=== PATIENT | female | born 1950 | race Caucasian/White ===

== ENCOUNTER 2016-11-16 18:42 | Inpatient (IN) | payer OTHER ==
[~2016-11-16] VITALS: Ht 152.4 cm; Wt 69.2 kg
[2016-11-16 19:05] LABS: EOSINOPHIL (%) 1.5 % (0-5); EOSINOPHIL COUNT 0.1 K/uL (0-0.3); HEMATOCRIT 41.5 % (36.0-46.0); IMMATURE GRANULOCYTE (%) 0.6 % (0.0-0.7); IMMATURE GRANULOCYTE COUNT 0.1 K/uL; INSTRUMENT ABS NEUTROPHIL CT 5.3 K/uL; LYMPHOCYTE COUNT 2.1 K/uL (1.0-2.8); MCH 29.8 PG (29.0-34.0); MCHC 33.3 G/DL (30.0-36.0); MCV 89.6 FL (83-99); MEAN PLAT.VOLUME 10.3 uM^3 (9.5-12.4); MONOCYTE (%) 6.2 % (3-12); MONOCYTE COUNT 0.5 K/uL (0-0.8); NEUTROPHIL (%) 65.4 % (45-76); NEUTROPHIL COUNT 5.3 K/uL (1.8-6.4); PLATELET COUNT 198 K/uL (156-360); RBC DIS.WIDTH-CV 12.8 % (11.8-14.6); RBC DIS.WIDTH-SD 42.2 % (39-53); RED BLOOD COUNT 4.63 M/uL (3.80-5.20); WHITE BLOOD COUNT 8.2 K/uL (4.1-10.2)
[2016-11-16 19:15] LABS: AMYLASE 48 IU/L (1-118); CHLORIDE 109 mEq/L (99-109); POTASSIUM 3.8 mEq/L (3.7-5.4); SODIUM 139 mEq/L (136-147)
[2016-11-16 19:17] LABS: GLUCOSE 128 mg/dL (70-99)
[2016-11-16 19:18] LABS: ANION GAP 10 MEQ/L (2-14)
[2016-11-16 19:20] LABS: SERUM ETHYL ALCOHOL < 10 mg/dL
[2016-11-16 19:21] LABS: GFR ESTIMATE (CALCULATED) > 59 mL/min/; UREA NITROGEN (BUN) 11 mg/dL (9-23)
[2016-11-16 19:24] LABS: LIPASE 56 U/L (1.0-51.0)
[2016-11-16 19:36] LABS: INTER. NORMALIZED RATIO 2.4; PROTHROMBIN TIME 24.6 (9.2-11.2)
[2016-11-16 19:51] LABS: ADD MIUA? YES; BILIRUBIN NEGATIVE; BLOOD NEGATIVE; COLOR STRAW ((YELLOW)); GLUCOSE (STRIP) NEGATIVE; KETONES NEGATIVE; LEUKOCYTES LARGE; NITRITE NEGATIVE; PROTEIN (STRIP) NEGATIVE; SPECIFIC GRAVITY 1.017 (1.000-1.030); UROBILINOGEN 0.2 MG/DL (0.2-1.0)
[2016-11-16 20:00] LABS: BACTERIA NONE SEEN /HPF; EPITHELIAL CELLS 1+ /HPF; MUCUS TRACE /LPF; RED BLOOD CELLS 0-5 /HPF (0-5); UCUL ADDED? NO; WHITE BLOOD CELLS 15-20 /HPF (0-5)
[2016-11-16 20:01] LABS: ADD MEDTOX COMMENT Y; AMPHETAMINE NEGATIVE (500 ng/mL); BARBITURATES NEGATIVE (200 ng/mL); BENZODIAZEPINES PRESUMPTIVE POSITIVE (150 ng/mL); COCAINE NEGATIVE (150 ng/mL); INTERNAL CONTROLS VALID? YES; METHADONE NEGATIVE (200 ng/mL); METHAMPHETAMINE NEGATIVE (500 ng/mL); OPIATES (MORPHINE) NEGATIVE (100 ng/mL); OXYCODONE PRESUMPTIVE POSITIVE (100 ng/mL); PHENCYCLIDINE NEGATIVE (25 ng/mL); PROPOXYPHENE NEGATIVE (300 ng/mL); THC CANNABINOIDS NEGATIVE (50 ng/mL); TRICYCLIC ANTIDEPRESSANTS NEGATIVE (300 ng/mL)
[2016-11-16 20:37] LABS: BENZODIAZEPINES, URINE SCREEN POSITIVE (200 ng/mL)
[2016-11-17 03:58] VITALS: BP 125/62
[2016-11-17 08:09] VITALS: BP 129/72
[2016-11-17 13:05] LABS: INTER. NORMALIZED RATIO 2.7; PROTHROMBIN TIME 28.3 (9.2-11.2)
[2016-11-17 16:08] VITALS: BP 140/91
[2016-11-17 18:58] VITALS: BP 137/70
[2016-11-18 07:24] LABS: INTER. NORMALIZED RATIO 2.1; PROTHROMBIN TIME 21.5 (9.2-11.2)
[2016-11-18 07:37] VITALS: BP 145/97
[2016-11-18 15:22] VITALS: BP 118/84
[2016-11-18 15:40] LABS: C DIFF TOXIN NEGATIVE (NEGATIVE)
[2016-11-18 15:41] LABS: PROBE CHECK PASS; SPECIMEN PROCESSING CONTROL PASS
[2016-11-19 07:18] LABS: INTER. NORMALIZED RATIO 1.5; PROTHROMBIN TIME 15.5 (9.2-11.2)
[2016-11-19 07:49] VITALS: BP 114/66
[2016-11-19 15:49] VITALS: BP 133/63
[2016-11-20 07:39] VITALS: BP 136/71
[2016-11-20 11:54] LABS: INTER. NORMALIZED RATIO 1.3; PROTHROMBIN TIME 13.8 (9.2-11.2)
[2016-11-20 15:00] VITALS: BP 140/61
[2016-11-21 07:26] VITALS: BP 129/61
[2016-11-21 07:55] LABS: INTER. NORMALIZED RATIO 1.4; PROTHROMBIN TIME 14.2 (9.2-11.2)
[2016-11-21 15:32] VITALS: BP 152/79
[2016-11-22 07:36] VITALS: BP 124/80
[2016-11-22 13:26] LABS: INTER. NORMALIZED RATIO 1.4
[2016-11-22 15:44] VITALS: BP 132/71
[2016-11-23 07:29] VITALS: BP 185/89
[2016-11-23 11:45] LABS: INTER. NORMALIZED RATIO 1.4; PROTHROMBIN TIME 13.9 (9.2-11.2)
[2016-11-23 13:00] VITALS: BP 134/68
[2016-11-23 15:30] VITALS: BP 130/73
[2016-11-23 22:46] VITALS: BP 132/74
[2016-11-24 01:09] VITALS: BP 142/73
[2016-11-24 07:40] VITALS: BP 152/82
[2016-11-24 12:06] LABS: INTER. NORMALIZED RATIO 1.1; PROTHROMBIN TIME 11.4 (9.2-11.2)
[2016-11-24 15:16] VITALS: BP 156/87
[2016-11-25 07:31] VITALS: BP 154/82
[2016-11-25 11:36] VITALS: BP 168/88
[2016-11-25 15:39] VITALS: BP 153/86
[2016-11-25 20:33] LABS: INTER. NORMALIZED RATIO 1.1; PROTHROMBIN TIME 10.7 (9.2-11.2)
[2016-11-26 07:35] VITALS: BP 174/74
[2016-11-26 10:01] LABS: INTER. NORMALIZED RATIO 1.1; PROTHROMBIN TIME 10.7 (9.2-11.2)
[2016-11-26 15:19] VITALS: BP 139/79
[2016-11-27 07:29] VITALS: BP 167/84
[2016-11-27 15:05] LABS: INTER. NORMALIZED RATIO 1.1; PROTHROMBIN TIME 11.4 (9.2-11.2)
[2016-11-27 16:19] VITALS: BP 167/80
[2016-11-28 07:47] VITALS: BP 150/93
[2016-11-28 13:21] LABS: INTER. NORMALIZED RATIO 1.1; PROTHROMBIN TIME 11.4 (9.2-11.2)
[2016-11-28 15:29] VITALS: BP 127/67
[2016-11-29 08:01] VITALS: BP 149/76
[2016-11-29 15:18] VITALS: BP 143/68
[2016-11-30 07:45] VITALS: BP 141/72
[2016-11-30 08:16] LABS: INTER. NORMALIZED RATIO 1.1; PROTHROMBIN TIME 10.9 (9.2-11.2)
[2016-11-30 15:31] VITALS: BP 138/88
[2016-12-01 07:49] VITALS: BP 170/84
[2016-12-02 07:25] VITALS: BP 147/87
[2016-12-02 15:38] VITALS: BP 173/76
[2016-12-02 19:36] VITALS: BP 140/75
[2016-12-03 07:52] VITALS: BP 133/94
[2016-12-03 15:30] VITALS: BP 153/91
[2016-12-03 18:06] LABS: PROTHROMBIN TIME 10.2 (9.2-11.2)
[2016-12-04 07:46] VITALS: BP 156/81
[2016-12-04 15:19] VITALS: BP 169/97
[2016-12-04 16:47] VITALS: BP 134/81
[2016-12-04 19:35] VITALS: BP 139/82
[2016-12-05 11:04] VITALS: BP 150/69
[2016-12-05 15:28] VITALS: BP 106/56
[2016-12-05 15:34] LABS: INTER. NORMALIZED RATIO 1.3; PROTHROMBIN TIME 12.9 (9.2-11.2)
[2016-12-05 20:01] VITALS: BP 138/90
[2016-12-06 07:57] VITALS: BP 115/67
[2016-12-06 16:32] VITALS: BP 113/64
[2016-12-07 11:48] VITALS: BP 150/75
[2016-12-07 11:58] LABS: INTER. NORMALIZED RATIO 1.2; PROTHROMBIN TIME 11.9 (9.2-11.2)
[2016-12-07 16:00] VITALS: BP 128/66
[2016-12-08 07:47] VITALS: BP 117/70
[2016-12-08 15:23] VITALS: BP 116/69
[2016-12-09 11:06] VITALS: BP 125/72
[2016-12-09 15:23] VITALS: BP 136/87
[2016-12-09 21:04] LABS: INTER. NORMALIZED RATIO 1.4; PROTHROMBIN TIME 14.3 (9.2-11.2)
[2016-12-10 07:35] VITALS: BP 129/85
[2016-12-10 15:37] VITALS: BP 95/60
[2016-12-10 23:06] LABS: POINT-OF-CARE METER ID UU13113830; POINT-OF-CARE USER ID BHSMEW
[2016-12-10 23:06] LABS: HEMATOCRIT 40.7 % (36.0-46.0); MCH 29.8 PG (29.0-34.0); MCHC 32.9 G/DL (30.0-36.0); MCV 90.6 FL (83-99); MEAN PLAT.VOLUME 11.1 uM^3 (9.5-12.4); PLATELET COUNT 228 K/uL (156-360); RBC DIS.WIDTH-CV 12.8 % (11.8-14.6); RBC DIS.WIDTH-SD 41.8 % (39-53); RED BLOOD COUNT 4.49 M/uL (3.80-5.20); WHITE BLOOD COUNT 7.7 K/uL (4.1-10.2)
[2016-12-10 23:17] LABS: CHLORIDE 105 mEq/L (99-109); POTASSIUM 3.8 mEq/L (3.7-5.4); SODIUM 143 mEq/L (136-147)
[2016-12-10 23:19] LABS: GLUCOSE 97 mg/dL (70-99)
[2016-12-10 23:21] LABS: ANION GAP 13 MEQ/L (2-14); TOTAL BILIRUBIN 0.2 mg/dL (0.0-1.0)
[2016-12-10 23:23] LABS: ALKALINE PHOSPHATASE 64 IU/L (3-129); GFR ESTIMATE (CALCULATED) > 59 mL/min/
[2016-12-10 23:24] LABS: UREA NITROGEN (BUN) 17 mg/dL (9-23)
[2016-12-10 23:28] LABS: TROP-I INTERPRETATION NEGATIVE; TROPONIN-I < 0.01 ng/mL (0.0-0.30)
[2016-12-11 00:19] LABS: LIPASE 135 U/L (1.0-51.0)
[2016-12-11] MEDS ORDERED: APRESOLINE25 MG PO (12:02)
[2016-12-11] MEDS ORDERED: MONTELUKAST SOD10 MG PO (12:03)
[2016-12-11] MEDS ORDERED: WARFARIN SODIUM5 MG PO (12:04)
[2016-12-11] MEDS ORDERED: DESYREL100 MG PO (12:06)
[2016-12-11] MEDS ORDERED: OXYCODONE-APAP1 EACH PO (12:07)
[2016-12-11] MEDS ORDERED: ATIVAN1 MG PO (12:17)
[2016-12-11] MEDS ORDERED: CYMBALTA20 MG PO (12:18)
[2016-12-11] MEDS ORDERED: TOPIRAMATE50 MG PO (12:22)
[2016-12-11] MEDS ORDERED: LISINOPRIL5 MG PO (12:29)
[2016-12-11] MEDS ORDERED: MIRTAZAPINE30 MG PO (12:34)
[2016-12-11] MEDS ORDERED: ATORVASTATIN CA40 MG PO (12:38)
[2016-12-11] MEDS ORDERED: RISPERDAL2 MG PO (12:40)
[2016-12-11] MEDS ORDERED: ZYPREXA15 MG PO (12:43)
[2016-12-11] MEDS ORDERED: COGENTIN1 MG PO (12:46)
[2016-12-11] MEDS ORDERED: MOTRIN600 MG PO (12:47)
[2016-12-11] MEDS ORDERED: NICORELIEF2 MG BC (12:48)
[2016-12-11] MEDS ORDERED: SINGULAIR10 MG PO (12:51)
[2016-12-11] MEDS ORDERED: NICOTINE PATCH1 EAC2 TD (12:52)
== END 2016-12-11 00:17 | DRG 885 ==
LOC: TRA 18:42 → EDOF 23:18 → 1WEST 23:18
PROVIDERS: Emergency Medicine; Hospitalist; Psychiatry & Neurology Psychiatry
DX: F31.5 Bipolar disorder, current episode depressed, severe, with psychotic features (principal); T18.4XXA Foreign body in colon, initial encounter; X83.8XXA Intentional self-harm by other specified means, initial encounter; Y92.239 Unspecified place in hospital as the place of occurrence of the external cause; Z78.1 Physical restraint status; S80.211A Abrasion, right knee, initial encounter; F60.9 Personality disorder, unspecified; F94.0 Selective mutism; R10.9 Unspecified abdominal pain; R11.2 Nausea with vomiting, unspecified; F11.10 Opioid abuse, uncomplicated; F13.10 Sedative, hypnotic or anxiolytic abuse, uncomplicated; I10 Essential (primary) hypertension; M54.9 Dorsalgia, unspecified; F17.210 Nicotine dependence, cigarettes, uncomplicated; Z86.718 Personal history of other venous thrombosis and embolism; Z79.01 Long term (current) use of anticoagulants; Z88.0 Allergy status to penicillin
CPT/HCPCS: 70450; 71020; 71260; 72125; 72129; 72132; 73560; 73590; 74000; 74176; 74177; 80048; 80053; 81003; 82150; 82948; 83605; 83690; 84484; 84999; 85025; 85027; 85610; 86900; 86901; 87493; 90837; 92610 GN; 93005; 94640; 94640 76; 94760; 97150 GO; 97165 GO; 97166 GO; 97530 GO; 99202; 99281; 99285; G0480; J1630; J1650; J2270; J2405; Q0169; Q0177; S0028

== ENCOUNTER 2016-12-10 23:00 | Observation (INO) | payer OTHER ==
[2016-12-11 03:18] LABS: ADD MIUA? YES; BILIRUBIN NEGATIVE; BLOOD NEGATIVE; COLOR YELLOW ((YELLOW)); GLUCOSE (STRIP) NEGATIVE; KETONES NEGATIVE; LEUKOCYTES TRACE; NITRITE NEGATIVE; PROTEIN (STRIP) NEGATIVE; SPECIFIC GRAVITY 1.009 (1.000-1.030); UROBILINOGEN 0.2 MG/DL (0.2-1.0)
[2016-12-11 03:21] VITALS: BP 137/69
[2016-12-11 03:24] LABS: BACTERIA RARE /HPF; EPITHELIAL CELLS RARE /HPF; MUCUS TRACE /LPF; RED BLOOD CELLS 0-5 /HPF (0-5); UCUL ADDED? NO; WHITE BLOOD CELLS 0-5 /HPF (0-5)
[2016-12-11 07:12] LABS: TROP-I INTERPRETATION NEGATIVE; TROPONIN-I < 0.01 ng/mL (0.0-0.30)
[2016-12-11 08:57] VITALS: BP 127/64
[2016-12-11 11:47] LABS: TROP-I INTERPRETATION NEGATIVE; TROPONIN-I < 0.01 ng/mL (0.0-0.30)
[2016-12-11] MEDS ORDERED: APRESOLINE25 MG PO (12:02)
[2016-12-11] MEDS ORDERED: MONTELUKAST SOD10 MG PO (12:03)
[2016-12-11] MEDS ORDERED: WARFARIN SODIUM5 MG PO (12:04)
[2016-12-11] MEDS ORDERED: DESYREL100 MG PO (12:06)
[2016-12-11] MEDS ORDERED: OXYCODONE-APAP1 EACH PO (12:07)
[2016-12-11] MEDS ORDERED: ATIVAN1 MG PO (12:17)
[2016-12-11] MEDS ORDERED: CYMBALTA20 MG PO (12:18)
[2016-12-11] MEDS ORDERED: TOPIRAMATE50 MG PO (12:22)
[2016-12-11] MEDS ORDERED: LISINOPRIL5 MG PO (12:29)
[2016-12-11] MEDS ORDERED: MIRTAZAPINE30 MG PO (12:34)
[2016-12-11] MEDS ORDERED: ATORVASTATIN CA40 MG PO (12:38)
[2016-12-11] MEDS ORDERED: RISPERDAL2 MG PO (12:40)
[2016-12-11] MEDS ORDERED: ZYPREXA15 MG PO (12:43)
[2016-12-11] MEDS ORDERED: COGENTIN1 MG PO (12:46)
[2016-12-11] MEDS ORDERED: MOTRIN600 MG PO (12:47)
[2016-12-11] MEDS ORDERED: NICORELIEF2 MG BC (12:48)
[2016-12-11] MEDS ORDERED: SINGULAIR10 MG PO (12:51)
[2016-12-11] MEDS ORDERED: NICOTINE PATCH1 EAC2 TD (12:52)
[2016-12-11 16:19] VITALS: BP 158/72
== END 2016-12-11 19:27 ==
LOC: 5WEST 23:00
PROVIDERS: Hospitalist
DX: R11.2 Nausea with vomiting, unspecified (principal); R55 Syncope and collapse; T18.2XXA Foreign body in stomach, initial encounter; F32.9 Major depressive disorder, single episode, unspecified; X83.8XXA Intentional self-harm by other specified means, initial encounter; Y92.230 Patient room in hospital as the place of occurrence of the external cause; R42 Dizziness and giddiness; I95.9 Hypotension, unspecified; R10.9 Unspecified abdominal pain; R64 Cachexia; Z86.718 Personal history of other venous thrombosis and embolism
CPT/HCPCS: 74000; 81003; 83605; 84484; 85610; G0378; J7030

== ENCOUNTER 2016-12-11 18:02 | Inpatient (IN) | payer OTHER ==
[~2016-12-11 18:02] MED LIST: APRESOLINE25 MG PO; ATIVAN1 MG PO; ATORVASTATIN CA40 MG PO; COGENTIN1 MG PO; CYMBALTA20 MG PO; DESYREL100 MG PO; LISINOPRIL5 MG PO; MIRTAZAPINE30 MG PO; MONTELUKAST SOD10 MG PO; MOTRIN600 MG PO; NICORELIEF2 MG BC; NICOTINE PATCH1 EAC2 TD; OXYCODONE-APAP1 EACH PO; RISPERDAL2 MG PO; SINGULAIR10 MG PO; TOPIRAMATE50 MG PO; WARFARIN SODIUM5 MG PO; ZYPREXA15 MG PO
[2016-12-12 07:32] VITALS: BP 130/64
[2016-12-12 15:30] VITALS: BP 104/62
[2016-12-13 08:00] VITALS: BP 125/56
[2016-12-13 16:23] VITALS: BP 110/67
[2016-12-14 07:38] VITALS: BP 128/60
[2016-12-15 08:02] VITALS: BP 138/78
[2016-12-15 15:47] VITALS: BP 124/79
[2016-12-16 07:46] VITALS: BP 130/63
[2016-12-16 10:59] LABS: ALKALINE PHOSPHATASE 79 IU/L (3-129); ANION GAP 12 MEQ/L (2-14); CHLORIDE 107 MEQ/L (99-109); GFR ESTIMATE (CALCULATED) > 59 mL/min/; GLUCOSE 128 mg/dL (70-99); POTASSIUM 4.2 MEQ/L (3.7-5.4); SAMPLE HEMOLYSIS CHECK 0; SAMPLE ICTERIC CHECK 0; SAMPLE LIPEMIA CHECK 0; SODIUM 141 MEQ/L (136-147); TOTAL BILIRUBIN 0.4 MG/DL (0.0-1.0); UREA NITROGEN (BUN) 7 mg/dL (9-23)
[2016-12-16 15:30] VITALS: BP 126/64
[2016-12-18 07:27] VITALS: BP 136/69
[2016-12-18 15:28] VITALS: BP 134/61
[2016-12-19 15:26] VITALS: BP 105/60
[2016-12-20 18:22] VITALS: BP 140/69
[2016-12-21 15:45] VITALS: BP 137/81
[2016-12-22 01:43] VITALS: BP 139/72
[2016-12-22 07:28] VITALS: BP 127/71
[2016-12-22 15:09] VITALS: BP 131/79
[2016-12-23 07:27] VITALS: BP 133/72
[2016-12-23 12:49] LABS: BACTERIA NONE SEEN /HPF; CALCIUM OXALATE CRYSTALS 2+ /HPF; EPITHELIAL CELLS NONE SEEN /HPF; MUCUS TRACE /LPF; RED BLOOD CELLS 0-5 /HPF (0-5); WHITE BLOOD CELLS 0-5 /HPF (0-5)
[2016-12-23 15:41] VITALS: BP 124/60
[2016-12-24 07:24] VITALS: BP 127/68
[2016-12-24 15:47] VITALS: BP 131/67
[2016-12-25 07:47] VITALS: BP 133/72
[2016-12-25 13:22] LABS: INTER. NORMALIZED RATIO 0.9; PROTHROMBIN TIME 9.5 (9.2-11.2)
[2016-12-25 15:43] VITALS: BP 120/63
[2016-12-26 07:57] VITALS: BP 126/74
[2016-12-26 13:10] LABS: PROTHROMBIN TIME 9.9 (9.2-11.2)
[2016-12-26 15:25] VITALS: BP 110/74
[2016-12-27 07:22] VITALS: BP 114/58
[2016-12-27 15:27] VITALS: BP 112/64
[2016-12-28 07:31] VITALS: BP 132/62
[2016-12-28 20:24] LABS: EOSINOPHIL (%) 0.4 % (0-5); HEMATOCRIT 45.9 % (36.0-46.0); IMMATURE GRANULOCYTE (%) 0.9 % (0.0-0.7); IMMATURE GRANULOCYTE COUNT 0.1 K/uL; INSTRUMENT ABS NEUTROPHIL CT 6.7 K/uL; LYMPHOCYTE COUNT 2.7 K/uL (1.0-2.8); MCH 30.2 PG (29.0-34.0); MCHC 32.5 G/DL (30.0-36.0); MCV 92.9 FL (83-99); MEAN PLAT.VOLUME 10.1 uM^3 (9.5-12.4); MONOCYTE COUNT 0.6 K/uL (0-0.8); NEUTROPHIL (%) 65.5 % (45-76); NEUTROPHIL COUNT 6.7 K/uL (1.8-6.4); PLATELET COUNT 288 K/uL (156-360); RBC DIS.WIDTH-CV 13.4 % (11.8-14.6); RBC DIS.WIDTH-SD 45.5 % (39-53); RED BLOOD COUNT 4.94 M/uL (3.80-5.20); WHITE BLOOD COUNT 10.2 K/uL (4.1-10.2)
[2016-12-28 20:32] LABS: CHLORIDE 110 mEq/L (99-109); POTASSIUM 4.2 mEq/L (3.7-5.4); SODIUM 144 mEq/L (136-147)
[2016-12-28 20:34] LABS: GLUCOSE 125 mg/dL (70-99)
[2016-12-28 20:35] LABS: ANION GAP 16 MEQ/L (2-14)
[2016-12-28 20:36] LABS: PROTHROMBIN TIME 10.5 (9.2-11.2); TOTAL BILIRUBIN 0.3 mg/dL (0.0-1.0)
[2016-12-28 20:37] LABS: ALKALINE PHOSPHATASE 127 IU/L (3-129)
[2016-12-28 20:38] LABS: GFR ESTIMATE (CALCULATED) > 59 mL/min/
[2016-12-28 20:39] LABS: UREA NITROGEN (BUN) 18 mg/dL (9-23)
[2016-12-28 21:08] VITALS: BP 137/71
[2016-12-29 07:55] VITALS: BP 129/75
[2016-12-29 15:27] VITALS: BP 130/73
[2016-12-29 18:09] LABS: C DIFF TOXIN NEGATIVE (NEGATIVE)
[2016-12-29 18:14] LABS: PROBE CHECK PASS; SPECIMEN PROCESSING CONTROL PASS
[2016-12-30 07:42] VITALS: BP 124/60
[2016-12-30 15:13] LABS: ADD MIUA? YES; BILIRUBIN NEGATIVE; BLOOD NEGATIVE; COLOR AMBER ((YELLOW)); GLUCOSE (STRIP) NEGATIVE; KETONES 5; LEUKOCYTES LARGE; NITRITE NEGATIVE; PROTEIN (STRIP) 30; SPECIFIC GRAVITY 1.025 (1.000-1.030); UROBILINOGEN 0.2 MG/DL (0.2-1.0)
[2016-12-30 15:21] VITALS: BP 137/67
[2016-12-30 15:39] LABS: CASTS NONE SEEN /LPF; EPITHELIAL CELLS NONE SEEN /HPF; MUCUS TRACE /LPF; RED BLOOD CELLS 0-5 /HPF (0-5); WHITE BLOOD CELLS 15-20 /HPF (0-5)
[2016-12-30 15:40] LABS: BACTERIA RARE /HPF; UCUL ADDED? NO
[2016-12-31 07:41] VITALS: BP 145/71
[2016-12-31] MEDS ORDERED: LORAZEPAM0.5 MG PO (08:35)
[2016-12-31] MEDS ORDERED: XARELTO20 MG PO (08:35)
[2016-12-31] MEDS ORDERED: ZOLPIDEM TARTRAT5 MG PO (08:35)
[2016-12-31] MEDS ORDERED: DIVALPROEX SOD500 M1 PO (08:35)
[2016-12-31] MEDS ORDERED: APRESOLINE25 MG PO (08:35)
[2016-12-31] MEDS ORDERED: MONTELUKAST SOD10 MG PO (08:35)
[2016-12-31] MEDS ORDERED: DULOXETINE HCL60 MG PO (08:35)
[2016-12-31] MEDS ORDERED: ATORVASTATIN CA40 MG PO (08:35)
[2016-12-31] MEDS ORDERED: MIRTAZAPINE15 MG PO (08:35)
[2016-12-31] MEDS ORDERED: OLANZAPINE10 MG PO (08:35)
[2016-12-31] MEDS ORDERED: LISINOPRIL5 MG PO (08:35)
[2016-12-31] MEDS ORDERED: TRAMADOL HCL50 MG PO (08:35)
[2016-12-31] MEDS ORDERED: CEPHALEXIN250 MG PO (09:19)
== END 2016-12-31 10:33 | disposition home or self-care (01) | DRG 885 ==
LOC: 1WEST 18:02
PROVIDERS: Internal Medicine; Nurse Practitioner Family; Psychiatry & Neurology Psychiatry
DX: F33.3 Major depressive disorder, recurrent, severe with psychotic symptoms (principal); R45.851 Suicidal ideations; F60.89 Other specific personality disorders; N39.0 Urinary tract infection, site not specified; T18.2XXA Foreign body in stomach, initial encounter; Y92.239 Unspecified place in hospital as the place of occurrence of the external cause; S60.410A Abrasion of right index finger, initial encounter; W22.8XXA Striking against or struck by other objects, initial encounter; Z91.14 Patient's other noncompliance with medication regimen; Z91.19 Patient's noncompliance with other medical treatment and regimen; R45.87 Impulsiveness; I10 Essential (primary) hypertension; K59.00 Constipation, unspecified; R19.7 Diarrhea, unspecified; Z78.1 Physical restraint status
CPT/HCPCS: 73130; 74000; 74020; 80053; 81003; 81015; 85025; 85610; 87177; 87493; 87506; 93005; 94799; 97150 GO; 97165 GO; 97530 GO; J1630; J1650; J2060; J3486; Q0169; Q0175; Q0177

== ENCOUNTER 2017-05-15 22:27 | Inpatient (IN) | payer OTHER ==
[~2017-05-15] VITALS: Ht 157.5 cm; Wt 67.7 kg
[~2017-05-15 22:27] MED LIST changes: +CEPHALEXIN250 MG PO; +DIVALPROEX SOD500 M1 PO; +DULOXETINE HCL60 MG PO; +LORAZEPAM0.5 MG PO; +MIRTAZAPINE15 MG PO; +OLANZAPINE10 MG PO; +TRAMADOL HCL50 MG PO; +XARELTO20 MG PO; +ZOLPIDEM TARTRAT5 MG PO
[2017-05-15 22:50] LABS: HEMATOCRIT 37.2 % (36.0-46.0); MCH 30.6 PG (29.0-34.0); MCHC 32.8 G/DL (30.0-36.0); MCV 93.2 FL (83-99); MEAN PLAT.VOLUME 10.7 uM^3 (9.5-12.4); PLATELET COUNT 251 K/uL (156-360); RBC DIS.WIDTH-CV 13.5 % (11.8-14.6); RBC DIS.WIDTH-SD 46.2 % (39-53); RED BLOOD COUNT 3.99 M/uL (3.80-5.20); WHITE BLOOD COUNT 13.6 K/uL (4.1-10.2)
[2017-05-15 23:01] LABS: CHLORIDE 105 mEq/L (99-109); POTASSIUM 4.1 mEq/L (3.7-5.4); SODIUM 136 mEq/L (136-147)
[2017-05-15 23:22] LABS: GLUCOSE 111 mg/dL (70-99)
[2017-05-15 23:24] LABS: ANION GAP 7 MEQ/L (2-14)
[2017-05-15 23:25] LABS: TOTAL BILIRUBIN 0.2 mg/dL (0.0-1.0)
[2017-05-15 23:26] LABS: ALKALINE PHOSPHATASE 46 IU/L (3-129); GFR ESTIMATE (CALCULATED) > 59 mL/min/
[2017-05-15 23:27] LABS: UREA NITROGEN (BUN) 8 mg/dL (9-23)
[2017-05-15 23:30] LABS: LIPASE 17 U/L (1.0-51.0)
[2017-05-16] MEDS ORDERED: FLORASTOR250 MG PO (01:28)
[2017-05-16] MEDS ORDERED: TESSALON PERLE100 MG PO (01:29)
[2017-05-16] MEDS ORDERED: PROTONIX40 MG PO (01:29)
[2017-05-16] MEDS ORDERED: AMITIZA8 MICROGRA PO (01:29)
[2017-05-16] MEDS ORDERED: BENTYL20 MG PO (01:30)
[2017-05-16] MEDS ORDERED: LIDODERM 5% P1 PATCH TD (01:30)
[2017-05-16] MEDS ORDERED: DUONEB 2.5-0.5 M3 ML AEROSOL (01:31)
[2017-05-16] MEDS ORDERED: AMBIEN5 MG PO (01:31)
[2017-05-16] MEDS ORDERED: PROAIR HFA8.5 GM IH (01:32)
[2017-05-16] MEDS ORDERED: DESYREL 150 MG150 MG PO (01:32)
[2017-05-16] MEDS ORDERED: PERCOCET 5/31 TABLET PO (01:33)
[2017-05-16] MEDS ORDERED: CYMBALTA60 MG PO (01:33)
[2017-05-16] MEDS ORDERED: CYMBALTA30 MG PO (01:33)
[2017-05-16] MEDS ORDERED: NEURONTIN300 MG PO (01:34)
[2017-05-16] MEDS ORDERED: ATARAX,VISTARIL50 MG PO (01:34)
[2017-05-16] MEDS ORDERED: GLUCOPHAGE500 MG PO (01:35)
[2017-05-16] MEDS ORDERED: LAMICTAL100 MG PO (01:35)
[2017-05-16] MEDS ORDERED: VITAMIN D31000 UNIT PO (01:35)
[2017-05-16] MEDS ORDERED: SEROQUEL200 MG PO (01:36)
[2017-05-16] MEDS ORDERED: MIRTAZAPINE15 MG PO (01:36)
[2017-05-16] MEDS ORDERED: PEPTO BISMOL240 ML PO (01:36)
[2017-05-16] MEDS ORDERED: BICARSIM80 MG PO (01:37)
[2017-05-16] MEDS ORDERED: FLAGYL500 MG PO (01:37)
[2017-05-16] MEDS ORDERED: PROMETHAZINE HC25 M1 PO (01:38)
[2017-05-16] MEDS ORDERED: LOMOTIL TABLET1 EACH PO (01:38)
[2017-05-16 03:18] VITALS: BP 146/70
[2017-05-16 06:31] LABS: ADD MIUA? YES; BILIRUBIN NEGATIVE; BLOOD NEGATIVE; COLOR YELLOW ((YELLOW)); GLUCOSE (STRIP) NEGATIVE; KETONES NEGATIVE; LEUKOCYTES TRACE; NITRITE NEGATIVE; PROTEIN (STRIP) NEGATIVE; UROBILINOGEN 0.2 MG/DL (0.2-1.0)
[2017-05-16 06:40] LABS: BACTERIA NONE SEEN /HPF; EPITHELIAL CELLS RARE /HPF; HYALINE CASTS 0-5 /LPF; MUCUS TRACE /LPF; RED BLOOD CELLS NONE SEEN /HPF (0-5); UCUL ADDED? NO; WHITE BLOOD CELLS NONE SEEN /HPF (0-5)
[2017-05-16 07:46] LABS: C DIFF TOXIN POSITIVE (NEGATIVE)
[2017-05-16 07:51] VITALS: BP 132/68
[2017-05-16 07:58] LABS: PROBE CHECK PASS; SPECIMEN PROCESSING CONTROL PASS
[2017-05-16 10:10] LABS: MCH 30.3 PG (29.0-34.0); MCHC 31.9 G/DL (30.0-36.0); MCV 95.1 FL (83-99); MEAN PLAT.VOLUME 10.6 uM^3 (9.5-12.4); PLATELET COUNT 249 K/uL (156-360); RBC DIS.WIDTH-CV 13.7 % (11.8-14.6); RBC DIS.WIDTH-SD 47.6 % (39-53); RED BLOOD COUNT 3.89 M/uL (3.80-5.20); WHITE BLOOD COUNT 14.1 K/uL (4.1-10.2)
[2017-05-16 10:54] LABS: ALKALINE PHOSPHATASE 48 IU/L (3-129); ANION GAP 10 MEQ/L (2-14); CHLORIDE 106 MEQ/L (99-109); GFR ESTIMATE (CALCULATED) > 59 mL/min/; GLUCOSE 120 mg/dL (70-99); POTASSIUM 4.2 MEQ/L (3.7-5.4); SAMPLE HEMOLYSIS CHECK 0; SAMPLE ICTERIC CHECK 0; SAMPLE LIPEMIA CHECK 0; SODIUM 139 MEQ/L (136-147); TOTAL BILIRUBIN 0.2 MG/DL (0.0-1.0); UREA NITROGEN (BUN) 7 mg/dL (9-23)
[2017-05-16 16:18] VITALS: BP 130/68
[2017-05-16 23:51] VITALS: BP 110/58
[2017-05-17 07:18] VITALS: BP 136/72
[2017-05-17 09:44] LABS: HEMATOCRIT 36.6 % (36.0-46.0); MCV 93.8 FL (83-99); MEAN PLAT.VOLUME 10.6 uM^3 (9.5-12.4); PLATELET COUNT 237 K/uL (156-360); RBC DIS.WIDTH-CV 13.6 % (11.8-14.6); RBC DIS.WIDTH-SD 46.5 % (39-53); WHITE BLOOD COUNT 14.6 K/uL (4.1-10.2)
[2017-05-17 10:06] LABS: ANION GAP 6 MEQ/L (2-14); CHLORIDE 105 MEQ/L (99-109); GFR ESTIMATE (CALCULATED) > 59 mL/min/; GLUCOSE 175 mg/dL (70-99); SAMPLE HEMOLYSIS CHECK 0; SAMPLE ICTERIC CHECK 0; SAMPLE LIPEMIA CHECK 0; SODIUM 138 MEQ/L (136-147); UREA NITROGEN (BUN) 4 mg/dL (9-23)
[2017-05-17 16:20] VITALS: BP 132/68
[2017-05-17 23:37] VITALS: BP 114/58
[2017-05-18 07:55] VITALS: BP 138/61
[2017-05-18 16:30] VITALS: BP 178/78
[2017-05-19 00:01] VITALS: BP 115/55
[2017-05-19 07:44] VITALS: BP 137/68
[2017-05-19 10:18] LABS: HEMATOCRIT 41.5 % (36.0-46.0); MCH 30.9 PG (29.0-34.0); MCHC 32.3 G/DL (30.0-36.0); MCV 95.8 FL (83-99); MEAN PLAT.VOLUME 10.5 uM^3 (9.5-12.4); NRBC (%) 0.1 /100 WBC (0-0); PLATELET COUNT 260 K/uL (156-360); RBC DIS.WIDTH-CV 14.1 % (11.8-14.6); RBC DIS.WIDTH-SD 49.6 % (39-53); RED BLOOD COUNT 4.33 M/uL (3.80-5.20); WHITE BLOOD COUNT 18.2 K/uL (4.1-10.2)
[2017-05-19 11:05] LABS: ANION GAP 9 MEQ/L (2-14); CHLORIDE 104 MEQ/L (99-109); GFR ESTIMATE (CALCULATED) > 59 mL/min/; GLUCOSE 160 mg/dL (70-99); POTASSIUM 3.8 MEQ/L (3.7-5.4); SAMPLE HEMOLYSIS CHECK 0; SAMPLE ICTERIC CHECK 0; SAMPLE LIPEMIA CHECK 0; SODIUM 142 MEQ/L (136-147); UREA NITROGEN (BUN) 6 mg/dL (9-23)
[2017-05-19 15:32] VITALS: BP 163/78
[2017-05-20] VITALS: BP 124/62
[2017-05-20 07:27] VITALS: BP 123/67
[2017-05-20 10:23] LABS: ANION GAP 10 MEQ/L (2-14); CHLORIDE 106 MEQ/L (99-109); GFR ESTIMATE (CALCULATED) > 59 mL/min/; GLUCOSE 201 mg/dL (70-99); POTASSIUM 4.1 MEQ/L (3.7-5.4); SAMPLE HEMOLYSIS CHECK 0; SAMPLE ICTERIC CHECK 0; SAMPLE LIPEMIA CHECK 0; SODIUM 143 MEQ/L (136-147); UREA NITROGEN (BUN) 8 mg/dL (9-23)
[2017-05-20 10:27] LABS: HEMATOCRIT 40.6 % (36.0-46.0); MCH 30.7 PG (29.0-34.0); MCHC 32.5 G/DL (30.0-36.0); MCV 94.4 FL (83-99); PLATELET COUNT 216 K/uL (156-360); RBC DIS.WIDTH-CV 14.3 % (11.8-14.6); RBC DIS.WIDTH-SD 49.1 % (39-53); WHITE BLOOD COUNT 15.7 K/uL (4.1-10.2)
[2017-05-20 16:13] VITALS: BP 144/71
[2017-05-20 23:43] VITALS: BP 136/67
[2017-05-21 07:55] VITALS: BP 112/62
[2017-05-21 14:37] LABS: HEMATOCRIT 39.2 % (36.0-46.0); MCH 30.1 PG (29.0-34.0); MCHC 31.6 G/DL (30.0-36.0); MCV 95.1 FL (83-99); MEAN PLAT.VOLUME 10.3 uM^3 (9.5-12.4); PLATELET COUNT 273 K/uL (156-360); RBC DIS.WIDTH-CV 14.2 % (11.8-14.6); RBC DIS.WIDTH-SD 48.8 % (39-53); RED BLOOD COUNT 4.12 M/uL (3.80-5.20); WHITE BLOOD COUNT 16.5 K/uL (4.1-10.2)
[2017-05-21 23:35] VITALS: BP 122/70
[2017-05-22 08:00] VITALS: BP 140/84
[2017-05-22] MEDS ORDERED: TYLENOL REGULA325 MG PO (11:53)
[2017-05-22] MEDS ORDERED: TORADOL10 MG PO (11:53)
[2017-05-22] MEDS ORDERED: BENTYL20 MG PO (11:53)
[2017-05-22] MEDS ORDERED: VANCOCIN HCL125 MG PO (11:53)
[2017-05-22] MEDS ORDERED: PERCOCET 5/31 TABLET PO (11:53)
[2017-05-22 23:54] VITALS: BP 129/61
[2017-05-23 07:04] LABS: HEMATOCRIT 38.6 % (36.0-46.0); MCH 30.5 PG (29.0-34.0); MCHC 31.6 G/DL (30.0-36.0); MCV 96.5 FL (83-99); MEAN PLAT.VOLUME 10.2 uM^3 (9.5-12.4); PLATELET COUNT 259 K/uL (156-360); RBC DIS.WIDTH-CV 14.3 % (11.8-14.6); RBC DIS.WIDTH-SD 50.6 % (39-53); WHITE BLOOD COUNT 11.6 K/uL (4.1-10.2)
[2017-05-23 07:27] LABS: ANION GAP 9 MEQ/L (2-14); CHLORIDE 107 MEQ/L (99-109); GFR ESTIMATE (CALCULATED) > 59 mL/min/; GLUCOSE 106 mg/dL (70-99); POTASSIUM 4.9 MEQ/L (3.7-5.4); SAMPLE HEMOLYSIS CHECK 0; SAMPLE ICTERIC CHECK 0; SAMPLE LIPEMIA CHECK 0; SODIUM 141 MEQ/L (136-147); UREA NITROGEN (BUN) 15 mg/dL (9-23)
[2017-05-23 07:41] VITALS: BP 128/84
== END 2017-05-23 10:30 | disposition home or self-care (01) | DRG 372 ==
LOC: EME → EDBD 22:27 → EME 22:27 → 5SOUTH 05-16 00:45 → EDOF 05-16 00:45 → ENRESERV 05-16 00:47 → 5SOUTH 05-16 03:17
PROVIDERS: Emergency Medicine; Internal Medicine; Physician Assistant Medical
DX: A04.72 Enterocolitis due to Clostridium difficile, not specified as recurrent (principal); E11.9 Type 2 diabetes mellitus without complications; F33.3 Major depressive disorder, recurrent, severe with psychotic symptoms; F60.9 Personality disorder, unspecified; F41.9 Anxiety disorder, unspecified; R45.851 Suicidal ideations; J43.9 Emphysema, unspecified; I10 Essential (primary) hypertension; J45.909 Unspecified asthma, uncomplicated; G89.29 Other chronic pain; K21.9 Gastro-esophageal reflux disease without esophagitis; E78.5 Hyperlipidemia, unspecified; F17.200 Nicotine dependence, unspecified, uncomplicated; Z79.84 Long term (current) use of oral hypoglycemic drugs
CPT/HCPCS: 74000; 74020; 80048; 80053; 81003; 83605; 83690; 85027; 85048; 87493; 99281; 99285; J0744; J1885; J2270; J2405; J2765; J3010; J7030; Q0169; Q0177; S0030